=== PATIENT | female | born 1995 | race Caucasian/White ===

== ENCOUNTER 2022-02-25 20:24 | Emergency (ER) | payer OTHER ==
[~2022-02-25 20:24] MED LIST: ACETAMINOPHEN500 M1 PO; COLACE100 MG PO; MOTRIN600 MG PO; OXY-IR 5MG5 MG PO; SERTRALINE HCL50 MG PO
== END 2022-02-25 21:07 | disposition home or self-care (01) ==
LOC: FER 20:24
DX: Z48.815 Encounter for surgical aftercare following surgery on the digestive system (principal); Z88.1 Allergy status to other antibiotic agents; Z88.5 Allergy status to narcotic agent
CPT/HCPCS: 99282